=== PATIENT | male | born 2000 | race Caucasian/White ===

== ENCOUNTER 2023-11-30 12:56 | Emergency (ER) | payer OTHER ==
[~2023-11-30] VITALS: Ht 170.2 cm; Wt 80.1 kg
[2023-11-30 12:59] VITALS: TEMP 97.8
[2023-11-30] MEDS: LIDOcaine 1% 30ml preserv. free vial IJ STA (14:00)
[2023-11-30 14:48] VITALS: BP 100/64; PULSE 78; RESP 16; O2SAT 97
[2023-11-30] MEDS: TETanus/Pertussis (Acell)/Diphther VAC/PF (Tdap-Adult) 0.5ml syringe IMVAC ONE (14:52)
== END 2023-11-30 14:52 | disposition home or self-care (01) ==
LOC: ER 12:57
DX: S61.412A Laceration without foreign body of left hand, initial encounter (principal); W26.8XXA Contact with other sharp object(s), not elsewhere classified, initial encounter; Y93.89 Activity, other specified; Y92.89 Other specified places as the place of occurrence of the external cause; Y99.8 Other external cause status
CPT/HCPCS: 12001; 99282; J3490